=== PATIENT | female | born 1960 | race Caucasian/White ===

== ENCOUNTER → 2016-10-13 | Outpatient (CLI) | payer OTHER ==
[~2016-10-13] MED LIST: LANS30CA12 PO; PARO1TAB27 PO
--- NOTE | 2016-10-13 15:37 | MAMMOGRAPHY REPORT ---
BILATERAL DIGITAL DIAGNOSTIC MAMMOGRAM TOMOSYNTHESIS WITH CAD AND TARGETED BILATERAL ULTRASOUND: 09/18 CLINICAL HISTORY: 6 Month Follow-up Right. TECHNIQUE: Breast tomosynthesis in addition to standard 2D mammography was performed. Current study was also evaluated with a Computer Aided Detection (CAD) system. Bilateral CC and MLO 2-D and orin synthesis images were obtained. COMPARISON: Comparison is made to exams dated: 03/03/2016 ultrasound, 03/03/2016 mammogram, 08/20/2015 mammogram, 08/05/2015 mammogram, 07/21/2013 mammogram, and 07/23/2014 mammogram - [facility] [place]. BREAST COMPOSITION: There are scattered areas of fibroglandular density in both breasts. FINDINGS: The previously described ovoid 13 mm asymmetry seen within the right lateral breast on the cc view is stable dating back to the July 2015 exam. There is an oval circumscribed 8 mm mass in the left medial breast on the cc view which has been present dating back to at least the 2012 exa m but appears slightly more prominent. The remainder of both breasts are stable compared to prior e xams, without suspicious masses, calcifications, or areas of architectural distortion noted. Small bilateral round/oval circumscribed benign-appearing masses are again noted bilaterally, which are co nsidered benign given the multiplicity and bilaterality and likely represent cysts. Targeted ultrasound was performed of the area of the previously seen right breast finding. In the r ight breast at 9:00, 4 cm from the nipple, again noted is a parallel isoechoic ovoid region measurin g 13 x 3 x 11 mm which is stable dating back to the August 2015 exam. This likely correlates with the mammographic asymmetry. Findings are benign given the morphology and long-term stability. Targeted ultrasound was performed of the left medial breast in the region of the conspicuous mammogr aphic mass. In the left breast at 9:00, 3 cm from the nipple, there is an oval circumscribed anecho ic mass with a few thin echogenic internal septations, measuring 3 x 4 x 4 mm. This is felt to [place] elate with the mammographic mass and is consistent with a benign cyst. A few other anechoic benign simple cysts were also noted, including a 3 mm simple cyst in the left breast at 8:00, 3 cm from the nipple, as well as a 5 x 3 mm simple cyst in the left breast at 9:00, 4 cm from the nipple. IMPRESSION: ACR BI-RADS CATEGORY 2: BENIGN, TARGETED ULTRASOUND ACR BI-RADS CATEGORY 2: BENIGN The right lateral breast asymmetry is stable dating back to the July 2015 exam, and is considere d benign given the morphology and long-term stability. Small benign cysts seen within the left 8 to 9:00 breast on ultrasound. There is no mammographic or targeted sonographic evidence of malignancy . A 1 year screening mammogram is recommended. The patient has been verbally notified of the result s. Approximately 10% of breast cancers are not detected with mammography. A negative mammographic repor t should not delay biopsy if a clinically suggestive mass is present. Rosa Isela Hernandez M.D. ah/:10/13/2016 14:22:59 Roll Mechanic: Amina ZAFAR(Alda)(Chiqui), [facility] letter sent: Normal 1/2 BI-RADS Code: ACR BI-RADS Category 2: Benign Ultrasound BI-RADS: ACR BI-RADS Category 2: Benign
== END | disposition home or self-care (01) ==
LOC: C.MAMM 13:30
PROVIDERS: ATTEND Internal Medicine
DX: R92.8 Other abnormal and inconclusive findings on diagnostic imaging of breast (principal); N60.02 Solitary cyst of left breast; N64.89 Other specified disorders of breast

== ENCOUNTER → 2017-03-13 | Outpatient (CLI) | payer OTHER ==
[2017-03-13 17:29] LABS: BASO % 0.2 %; BASO ABS # 0.01 K/uL (0-0.2); COMPLETE YES; HEMATOCRIT 41.8 % (37-47); LYMPH % 41.3 %; MEAN CELL VOLUME 89.1 fL (80-100); MEAN CORPUSCULAR HEMOGLOBIN 30.7 pg (25-34); MEAN CORPUSCULAR HGB CONC 34.4 g/dl (32-36); MEAN PLATELET VOLUME 10.5 fL (7.4-10.4); MONO % 8.8 %; NEUT % 46.7 %; PLATELET COUNT 199 K/uL (130-400); RED BLOOD COUNT 4.69 M/uL (4.2-5.4); WHITE BLOOD COUNT 5.33 K/uL (4.8-10.8)
[2017-03-13 17:59] LABS: ALT/SGPT 74 U/L (12-78); BLOOD UREA NITROGEN 13 mg/dl (7-18); BUN/CREATININE RATIO 15.4 (10-20); CALCIUM 9.1 mg/dl (8.5-10.1); CARBON DIOXIDE 26 mmol/L (21-32); CHLORIDE 106 mmol/L (98-107); CHOLESTEROL 209 mg/dl (0-200); CREATININE 0.83 mg/dl (0.60-1.20); GLUCOSE 127 mg/dl (70-99); POTASSIUM 3.3 mmol/L (3.5-5.1); SODIUM 140 mmol/L (136-145); TRIGLYCERIDES 111 mg/dl (0-150); VERY LOW DENSITY LIPOPROT CALC 22 mg/dl
[2017-03-13 18:10] LABS: ALB/GLOB RATIO 1.2 (0.9-2); ALKALINE PHOSPHATASE 56 U/L (45-117); AST/SGOT 36 U/L (15-37); CHOLESTEROL/HDL RATIO 5.2; HDL CHOLESTEROL 40 mg/dl; LDL CHOLESTEROL CALCULATED 147 mg/dl; THYROID STIMULATING HORMONE 0.644 uIu/ml (0.300-4.500)
== END | disposition home or self-care (01) ==
LOC: C.LABPBG 15:19
PROVIDERS: ATTEND Physician Assistant Medical
DX: E78.5 Hyperlipidemia, unspecified (principal)

== ENCOUNTER → 2017-03-22 | Outpatient (CLI) | payer OTHER ==
[2017-03-22 16:56] LABS: BLOOD UREA NITROGEN 10 mg/dl (7-18); BUN/CREATININE RATIO 12.1 (10-20); CALCIUM 9.6 mg/dl (8.5-10.1); CARBON DIOXIDE 29 mmol/L (21-32); CHLORIDE 107 mmol/L (98-107); CREATININE 0.86 mg/dl (0.60-1.20); GLUCOSE 100 mg/dl (70-99); POTASSIUM 4.2 mmol/L (3.5-5.1); SODIUM 140 mmol/L (136-145)
[2017-03-23 06:05] LABS: ESTIMATED AVERAGE GLUCOSE 108 mg/dl; HA1C FLAG Normal (Normal)
== END | disposition home or self-care (01) ==
LOC: C.LABPBG 12:30
PROVIDERS: ATTEND Physician Assistant Medical
DX: R73.01 Impaired fasting glucose (principal); E87.6 Hypokalemia

== ENCOUNTER → 2018-04-30 | Outpatient (CLI) | payer OTHER ==
[2018-04-30 17:12] LABS: HEMATOCRIT 42.4 % (37-47); HEMOGLOBIN 14.5 g/dL (12.0-16.0); MEAN CELL VOLUME 89.5 fL (80-100); MEAN CORPUSCULAR HEMOGLOBIN 30.6 pg (25-34); MEAN CORPUSCULAR HGB CONC 34.2 g/dl (32-36); MEAN PLATELET VOLUME 10.5 fL (7.4-10.4); PLATELET COUNT 193 K/uL (130-400); RED CELL DISTRIBUTION WIDTH CV 12.9 % (11.5-14.5); RED CELL DISTRIBUTION WIDTH SD 42.2 fL (36.4-46.3); WHITE BLOOD COUNT 7.67 K/uL (4.8-10.8)
[2018-04-30 17:28] LABS: ALBUMIN 4.1 gm/dl (3.4-5.0); ALKALINE PHOSPHATASE 68 U/L (45-117); ALT/SGPT 66 U/L (12-78); AST/SGOT 34 U/L (15-37); BLOOD UREA NITROGEN 14 mg/dl (7-18); CALCIUM 9.5 mg/dl (8.5-10.1); CARBON DIOXIDE 27 mmol/L (21-32); CHOLESTEROL 161 mg/dl (0-200); CREATININE 0.95 mg/dl (0.60-1.20); GLUCOSE 123 mg/dl (70-99); LDL CHOLESTEROL CALCULATED 87 mg/dl; POTASSIUM 4.8 mmol/L (3.5-5.1); SODIUM 139 mmol/L (136-145); TOTAL PROTEIN 8.2 gm/dl (6.4-8.2)
== END | disposition home or self-care (01) ==
LOC: C.LABBFT 11:47
PROVIDERS: ATTEND Physician Assistant Medical
DX: E78.5 Hyperlipidemia, unspecified (principal); K92.1 Melena

== ENCOUNTER → 2018-05-01 | Outpatient (CLI) | payer OTHER ==
--- NOTE | 2018-05-01 13:51 | MAMMOGRAPHY REPORT ---
BILATERAL DIGITAL DIAGNOSTIC MAMMOGRAM TOMOSYNTHESIS WITH CAD AND TARGETED LEFT ULTRASOUND: 05/01/2018 CLINICAL HISTORY: 58-year-old woman presents with new onset left breast erythema, firmness and pain. Patient denies fevers or chills and nipple discharge. Also overdue for annual bilateral mammograms. TECHNIQUE: Bilateral CC and MLO 2D and tomosynthesis images were obtained. Current study was also ev aluated with a Computer Aided Detection (CAD) system. COMPARISON: Comparison is made to exams dated: 10/13/2016 mammogram, 03/03/2016 mammogram, 08/20/2015 m ammogram, 08/05/2015 mammogram, 10/13/2016 ultrasound, and 03/03/2016 ultrasound - [facility]. BREAST COMPOSITION: There are scattered areas of fibroglandular density in both breasts. FINDINGS: A triangular palpable marker was placed in the area of most intense pain in the 3:00 to 4:0 0 anterior left breast. There is subtle increased density of the entire left breast comparing to the right and also mild left breast skin thickening, most prominent from the 8:009:00 through periareol ar and 2:00 to 4:00 axes of the left breast. No obvious mass, asymmetry or new calcifications are id entified in the left breast. There is questionable architectural distortion in the lateral middle on e third of the left breast on CC tomosynthesis slice 29/73. Further evaluation with ultrasound was p erformed. There is a benign-appearing circumscribed mass in the upper outer anterior right breast, previously d ocumented to represent a cyst cluster on ultrasound. There is stable nodularity throughout the media l right breast. No new suspicious masses, asymmetries, calcifications or areas of architectural dist ortion are identified in the right breast. Targeted ultrasound was performed to the left breast. First on visual inspection, there is geographi c erythema extending from the 8:00 to 9:00 through periareolar and 2:00 through 5:00 axes. Targeted ultrasound performed over the areas of erythema demonstrate mild skin thickening measuring up to 2.9 mm. There is no evidence of a drainable fluid collection these findings are most compatible with mas titis/cellulitis. Incidental note is made of a small oval isoechoic partially circumscribed 4.9 x 3. 2 x 5.0 mm solid versus cystic mass in the 9:00 left breast, 2 cm from the nipple. In the 9:00 left breast, 1 cm from the nipple, there is a gently lobulated parallel isoechoic and anechoic solid versu s cystic mass measuring 10.2 x 4.0 x 6.1 mm. This could represent focal fibrocystic change, a cyst c luster or a fibroadenoma. IMPRESSION: ACR-BI-RADS CATEGORY 3: PROBABLY BENIGN, ULTRASOUND ACR-BI-RADS CATEGORY 3: PROBABLY ROSITA GN 1. Overall, the findings of the left breast are most compatible with mastitis/cellulitis without latanya dence of abscess. Continuation of antibiotic therapy is recommended and follow-up to complete resolu tion is recommended. If the breast erythema does not improve, skin biopsy is recommended. Additiona lly, given the possible subtle distortion in the lateral left breast and two indeterminate possibly s olid-appearing masses seen in the left 9:00 breast on targeted ultrasound, a short interval follow-up in approximately 6 weeks is recommended, and further management will be decided at that time presumi ng the infection/inflammation has resolved. 2. Stable mammographic appearance of the right breast, without evidence of malignancy. Recommend ri ght mammography in 1 year. Some breast cancers are not detected with mammography. A negative mammographic report should not justyn y biopsy if a clinically suggestive mass is present. Apoorva Lara M.D. ay/:05/01/2018 12:35:00 Office Machine Technician: Amina Trinh, [facility]; Apoorva Lara, [facility] letter sent: Follow Up Recommended 3 OVERALL STUDY BIRADS: 3 Probably benign
== END | disposition home or self-care (01) ==
LOC: C.MAMM 08:04
PROVIDERS: ATTEND Physician Assistant Medical
DX: N64.4 Mastodynia (principal); L53.9 Erythematous condition, unspecified

== ENCOUNTER 2023-09-03 18:26 | Observation (INO) ==
[2023-09-03] MEDS ORDERED: ONDANSETRON INJ 2 MG/ML 2 ML VIAL IV STA (18:47)
--- NOTE | 2023-09-03 18:47 | ED Triage Note ---
Date of Service September 03, 2023 Provider in Triage Author: Scarlet Payne History of Present Illness This patient was briefly evaluated while in triage. An abbreviated physical exam was performed. This patient is a 63-year-old Female who presents to the ED for evaluation of vomiting. Has not been able to eat or drink since last night at 7 pm. Feels really dizzy and dehydrated. Having cramping in her legs and a headache from dehydration and the vomiting. Squirts of diarrhea. No known fevers. Tried Zofran without improvement of her symptoms. Denies chest pain or SOB. Mild cramping of her abdomen before vomiting, but no true abdominal pain. Physical Exam GENERAL: The patient appears very nauseous and is vomiting in triage and appears uncomfortable from the nausea and vomiting. However, she appears non-toxic. HEENT: Pupils equal. No obvious scleral icterus. HEART: Regular rate and rhythm. LUNGS: Clear to auscultation. No accessory muscle use. ABDOMEN: Soft. Abdominal exam was somewhat difficult due to the patient's nausea and vomiting and inability to sit still in triage. NEURO: Alert and oriented. No obvious neurological deficits on quick neuro exam. Initial orders for labs and / or imaging were placed and patient was placed in the waiting area until a bed is available. Please see further documentation for the full ED course. MDM / Impression Impression Impression: COVID-19, Lactic acidemia
[2023-09-03] MEDS ORDERED: SODIUM CHLORIDE 0.9% 1,000 ML IV SCH ×2 (19:00→23:15)
[2023-09-03 19:43] LABS: Albumin Globulin Ratio 1.6 (0.9-2); Albumin Level 4.9 gm/dl (3.4-5.0); BUN Creatinine Ratio 14.6 (10-20); Bilirubin,Total 1.2 mg/dl (0.2-1.0); Calcium 9.7 mg/dl (8.6-10.3); Creatinine Clr Calc Pharmacy 69.6 ml/min; Est GFR (African American) 88.9 ml/min; Est GFR (Non-African American) 76.7 ml/min; Magnesium 1.6 mg/dl (1.7-2.4); Potassium 3.7 mmol/L (3.5-5.1); Total Protein 7.9 gm/dl (6.0-8.3)
[2023-09-03] MEDS ORDERED: diphenhydrAMINE 50 MG/ML VIAL IV STA (19:54)
[2023-09-03] MEDS ORDERED: SODIUM CHLORIDE 0.9% 1,000 ML IV ONE (19:54)
[2023-09-03] MEDS ORDERED: METOCLOPRAMIDE HCL INJ 5 MG/ML 2 ML VIAL IV ONE (19:54)
[2023-09-03 20:02] LABS: Hematocrit (blood only) 40.5 % (37.0-47.0); Hemoglobin 13.9 g/dl (12.0-16.0); Mean Corpuscular Hemoglobin 28.9 pg (25.0-34.0); Mean Corpuscular Hgb Conc 34.3 g/dL (32.0-36.0); Mean Corpuscular Volume 84.2 fL (80.0-100.0); Mean Platelet Volume 10.4 fL (9.4-12.4); Platelet Count 187 K/uL (130-400); RDW Coefficient of Variation 12.6 % (11.5-14.5); RDW Standard Deviation 37.7 fL (36.4-46.3); Red Blood Count 4.81 M/uL (4.20-5.40); White Blood Count 10.16 K/ul (4.8-10.8)
[2023-09-03 20:03] LABS: Basophils # (auto) 0.03 K/uL (0.00-0.20); Basophils % (auto) 0.3 %; Eosinophils # (auto) 0.04 K/uL (0.00-0.50); Eosinophils % (auto) 0.4 %; Immature Granulocytes # (auto) 0.05 K/uL (0.01-0.20); Immature Granulocytes % (auto) 0.5 %; Lymphocytes # (auto) 0.55 K/uL (1.20-3.40); Lymphocytes % (auto) 5.4 %; Monocytes # (auto) 0.68 K/uL (0.11-0.59); Monocytes % (auto) 6.7 %; Neutrophils # (auto) 8.81 K/uL (1.40-6.50); Neutrophils % (auto) 86.7 %
[2023-09-03] MEDS ORDERED: OPTIRAY 320 500ml IV ONE (21:05)
[2023-09-03 21:16] LABS: Appearance Urine Cloudy (Clear); Bacteria Urine Automated Negative (Negative); Bilirubin Urine Negative (Negative); Blood Urine Negative (Negative); Cast Urine Automated 0 /lpf (0-5); Color Urine Yellow; Epithelial Cell Urine Auto 20-30 /lpf (0-5); Glucose Urine UA Negative (Negative); Ketones Urine Negative (Negative); Leukocyte Esterase Urine Trace (Negative); Nitrite Urine Negative (Negative); Protein Urine Negative (Negative); RBC Urine Automated 0-4 /hpf (0-4); Specific Gravity Urine 1.018 (1.000-1.030); Urobilinogen Urine Negative (Negative)
--- NOTE | 2023-09-03 22:03 | Emergency Department Note ---
History of Present Illness General Chief complaint: Vomiting Stated complaint: VOMITING, CRAMPS, DIZZY Time Seen by Provider: 09/03/23 19:38 History of Present Illness Provider Complaint: + nausea and + vomiting Onset (ago): day(s) 1 Description of Vomiting: no bilious, no blood-streaked, no bloody or no coffee grounds Associated Abdominal Pain: Yes Location of pain: + diffuse Quality: + cramping Pain Consistency: + intermittent Relieved By: + none Exacerbated By: + none Context: no foreign travel, no sick contacts, no recent antibiotic use, no history of abdominal surgery, no alcohol abuse, no trauma, no anticoagulant use, no NSAID use, no smoking or no marijuana use Associated symptoms: + cough and + headaches; no chest pain, no fever/chills, no rash or no shortness of breath Home Medications Medication Instructions Recorded Confirmed Type paroxetine HCl 20 mg tablet 20 mg PO QAM #90 tabs 11/21/22 09/03/23 Rx atorvastatin 40 mg tablet 40 mg PO HS #90 tabs 11/26/22 09/03/23 Rx lansoprazole 30 mg capsule,delayed 30 mg PO BID PRN Heartburn 09/03/23 09/03/23 History release Allergies Allergy/AdvReac Type Severity Reaction Status Date / Time No Known Allergies Allergy Verified 08/15/23 15:19 Past Med/Surg History Medical History History of anesthesia reaction went into asthma attack during EGD 02/2019 Schatzki's ring Arthralgia of multiple sites Depression Hiatal hernia Esophageal dysphagia History of gastric ulcer GERD (gastroesophageal reflux disease) Anxiety Hyperlipidemia Asthma no longer uses inhalers for asthma - saw a specialist and unsure whether she actually has asthma Surgical History History of removal of cyst benign off breast History of bilateral tubal ligation History of colonoscopy (~07/19/11) repeat in 10 years History of esophagogastroduodenoscopy (EGD) History of wisdom tooth extraction Family History Father Family history of diabetes mellitus Myocardial infarction Brother Myocardial infarction Other No family history of adverse response to anesthesia Denies family history of Ovarian cancer Prostate cancer Breast cancer Colorectal cancer Social History Smoking Status: Never smoker Second Hand Exposure: Yes (parents smoked); Do You Dip or Chew Tobacco: No; Hx Alcohol Use: Yes Alcohol type: beer Hx Substance Use: No Preferred Language: Japanese Communication Ability: Effective Visual Impairment: No Limitations Hearing Ability: Normal [place] Required: No Beliefs That Will Affect Care: None marital status: Current Living Situation: Spouse Current Living Situation Comment: lives with and great nephew current occupational status: retired Feels Safe at Home: Yes Childhood Exposure to Second-Hand Smoke: No Diet: regular Dental Care, Regularly: No Physical Activity Frequency: Does not Exercise Seatbelt Use: sometimes Sunscreen Use: Yes Assistive Devices: Glasses Physical Exam 2 Vital Signs: Vital Signs - 24 hr 09/03/23 18:42 09/03/23 20:19 09/03/23 20:26 Temperature 36.4 C L Temperature Source Temporal Artery Sc an Pulse Rate 123 H 77 Pulse Rate [Right Finger] 104 H Respiratory Rate 18 18 18 Respiratory Effort / Characteristics Non-Labored Non-Labored Sponta neous Respiratory Depth Normal Normal Respiratory Patter n Regular Blood Pressure 176/86 H Blood Pressure [Ri ght Arm] 166/90 H Blood Pressure Samantha n 116 Blood Pressure Samantha n [Right Arm] 115 Blood Pressure Pos ition [Right Arm] Sitting Pulse Oximetry 97 98 98 Oxygen Delivery Me thod Room Air Room Air Room Air Sepsis Recent Feve r Within 48 Hours No Sepsis New/Unexpla ined Change in Men leticia Status N/A Sepsis Action Take n by Nursing No Action Required 09/03/23 22:00 09/03/23 23:51 Temperature Temperature Source Pulse Rate Pulse Rate [Right Finger] 87 96 H Respiratory Rate 18 18 Respiratory Effort / Characteristics Respiratory Depth Normal Respiratory Patter n Blood Pressure Blood Pressure [Ri ght Arm] 136/81 Blood Pressure Samantha n Blood Pressure Samantha n [Right Arm] 99 Blood Pressure Pos ition [Right Arm] Pulse Oximetry 95 90 Oxygen Delivery Me thod Room Air Room Air Sepsis Recent Feve r Within 48 Hours Sepsis New/Unexpla ined Change in Men leticia Status Sepsis Action Take n by Nursing Physical Exam: Physical Exam GENERAL: She is oriented to person, place, and time. She appears well-developed and well-nourished. She does not appear distressed. HENT: Exam performed. -Head: Normocephalic and atraumatic. -Right Ear: External ear normal. No mastoid erythema -Left Ear: External ear normal. No mastoid erythema -Mouth/Throat: The oropharynx is clear and moist. No trismus in the jaw. No dental abscesses or uvula swelling. No oropharyngeal exudate or tonsillar abscesses. EYES: Conjunctivae and EOM are normal. Pupils are equal, round, and reactive to light. Right eye exhibits no discharge. Left eye exhibits no discharge. No scleral icterus. NECK: Normal range of motion. Neck supple. No JVD present. No spinous process tenderness present. No carotid bruit present. No rigidity. No tracheal deviation and normal range of motion present. No Brudzinski's sign and no Kernig's sign noted. CV: Normal rate, regular rhythm, normal heart sounds and intact distal pulses. There is no peripheral edema. Palpable radial pulses bue. PULM/CHEST: Effort normal and breath sounds normal. No respiratory distress. No stridor. She has no wheezes. She has no rales. -Chest Wall: She exhibits no tenderness. ABD: The abdomen is soft. Bowel sounds are normal. She has no distension. No mass is present. There is no tenderness. There is no rebound, no guarding, no Griffiths's sign and no tenderness at McBurney's point. Rovsig negative MUSC/SKEL: Normal range of motion. There is no peripheral edema, tenderness or deformity. LYMPH: No cervical adenopathy. NEURO: She is alert and oriented to person, place, and time. She has normal strength. No cranial nerve deficit or sensory deficit. Coordination and gait normal. GCS eye subscore is 4. GCS verbal subscore is 5. GCS motor subscore is 6. Cerebellar tests wnl. SKIN: Skin is warm and dry. She is not diaphoretic. PSYCH: She has a normal mood and affect. Behavior is normal. Judgment and thought content normal. Course Course 1937: The patient was evaluated in room B7. A complete history and physical exam was performed Cardiac monitoring: An order was placed for continuous cardiac monitoring. The monitor shows a rate of 80 with sinus rhythm interpreted by ma [id number]: Vital signs stable. Labs showed normal white blood cell count. Lactic acid was initially 3. After 2 L of normal saline which the patient's lactic acid went up to 3.2. CT of the head and CT abdomen pelvis within normal limits. Patient is COVID-positive. Given the patient's increasing lactic acid IV fluids will be continued and [facility] team will be notified. Administered Medications Discontinued Medications Diphenhydramine HCl (Diphenhydramine 50 Mg/Ml Vial) 25 mg IV NOW STA Stop: 09/03/23 19:55 Last Admin: 09/03/23 20:14 Dose: 25 mg Documented By: KAMALJIT Sodium Chloride (Nss) 1,000 mls @ 999 mls/hr IV .Q1H1M LOUISA Stop: 09/03/23 20:00 Last Infusion: 09/03/23 20:28 Dose: Infused Documented By: Admin: 09/03/23 18:57 Dose: 999 mls/hr Documented By: SUMA Sodium Chloride (Nss) 1,000 mls @ 999 mls/hr IV .Q1H1M ONE Stop: 09/03/23 20:54 Last Infusion: 09/03/23 21:26 Dose: Infused Documented By: Admin: 09/03/23 20:13 Dose: 999 mls/hr Documented By: KAMALJIT Acetaminophen (Ofirmev) 1,000 mg in 100 mls @ 400 mls/hr IV NOW STA Stop: 09/03/23 22:39 Last Infusion: 09/03/23 22:48 Dose: Infused Documented By: Admin: 09/03/23 22:33 Dose: 400 mls/hr Documented By: SANDEEP Ioversol (Optiray 320 500ml) 88 ml IV ONCE ONE Stop: 09/03/23 21:06 Last Admin: 09/03/23 21:05 Dose: 88 ml Documented By: RONNI Metoclopramide HCl (Metoclopramide Hcl Inj 5 Mg/Ml 2 Ml Vial) 5 mg IV ONE ONE Stop: 09/03/23 19:55 Last Admin: 09/03/23 20:14 Dose: 5 mg Documented By: KAMALJIT Morphine Sulfate (Morphine Sulfate 2 Mg/Ml Carp) 2 mg IV NOW STA Stop: 09/03/23 22:26 Last Admin: 09/03/23 22:32 Dose: 2 mg Documented By: SANDEEP Ondansetron HCl (Ondansetron Inj 2 Mg/Ml 2 Ml Vial) 4 mg IV NOW STA Stop: 09/03/23 18:48 Last Admin: 09/03/23 19:02 Dose: 4 mg Documented By: SUMA Medical Decision Making Laboratory Data Attestation: I reviewed the patient's lab results. 09/03/23 19:01 09/03/23 19:01 Lab Results 09/03/23 09/03/23 09/03/23 Range/Units 19:01 19:03 20:22 WBC 10.16 (4.8-10.8) K/ul RBC 4.81 (4.20-5.40) M/uL Hgb 13.9 (12.0-16.0) g/dl Hct 40.5 (37.0-47.0) % MCV 84.2 (80.0-100.0) fL MCH 28.9 (25.0-34.0) pg MCHC 34.3 (32.0-36.0) g/dL RDW Std Deviation 37.7 (36.4-46.3) fL RDW Coeff of Carol 12.6 (11.5-14.5) % Plt Count 187 (130-400) K/uL MPV 10.4 (9.4-12.4) fL Immature Gran % (Auto) 0.5 % Neut % (Auto) 86.7 % Lymph % (Auto) 5.4 % [place] % (Auto) 6.7 % Eos % (Auto) 0.4 % Baso % (Auto) 0.3 % Neut # (Auto) 8.81 H (1.40-6.50) K/uL Lymph # (Auto) 0.55 L (1.20-3.40) K/uL [place] # (Auto) 0.68 H (0.11-0.59) K/uL Eos # (Auto) 0.04 (0.00-0.50) K/uL Baso # (Auto) 0.03 (0.00-0.20) K/uL Immature Gran # (Auto) 0.05 (0.01-0.20) K/uL Sodium 137 (136-145) mmol/L Potassium 3.7 (3.5-5.1) mmol/L Chloride 100 (98-107) mmol/L Carbon Dioxide 23 (21-32) mmol/L Anion Gap 14 H (3-11) BUN 12 (6-23) mg/dl Creatinine 0.82 (0.6-1.2) mg/dl Est Cr Clr Drug Dosing 69.6 ml/min Est GFR ( Amer) 88.9 ml/min Est GFR (Non-Af Amer) 76.7 ml/min BUN/Creatinine Ratio 14.6 (10-20) Glucose 127 H (70-99(Fasting)) mg/dl Lactate 3.0 H* (0.4-2.0) mmol/L Calcium 9.7 (8.6-10.3) mg/dl Magnesium 1.6 L (1.7-2.4) mg/dl Total Bilirubin 1.2 H (0.2-1.0) mg/dl AST 45 H (13-39) U/L ALT 46 (7-52) U/L Alkaline Phosphatase 65 (34-104) U/L Total Protein 7.9 (6.0-8.3) gm/dl Albumin 4.9 (3.4-5.0) gm/dl Globulin 3.0 (2.5-4.0) gm/dl Albumin/Globulin Ratio 1.6 (0.9-2) Lipase 17 (11-82) U/L Urine Color Yellow Urine Appearance Cloudy A (Clear) Urine pH 8.0 H (4.5-7.5) Ur Specific [place] 1.018 (1.000-1.030) Urine Protein Negative (Negative) Urine Glucose (UA) Negative (Negative) Urine Ketones Negative (Negative) Urine Blood Negative (Negative) Urine Nitrite Negative (Negative) Urine Bilirubin Negative (Negative) Urine Urobilinogen Negative (Negative) Ur Leukocyte Esterase Trace H (Negative) Urine WBC (Auto) 1-5 (0-5) /hpf Urine RBC (Auto) 0-4 (0-4) /hpf U Hyaline Cast (Auto) 0 (0-5) /lpf U Epithel Cells (Auto) 20-30 H (0-5) /lpf Urine Bacteria (Auto) Negative (Negative) SARS-CoV-2 (PCR) POSITIVE A* (Negative) Influenza Type A (PCR) Negative (Neg) Influenza Type B (PCR) Negative (Neg) RSV (RT-PCR) Negative (Neg) 09/03/23 09/03/23 Range/Units 20:55 21:52 WBC (4.8-10.8) K/ul RBC (4.20-5.40) M/uL Hgb (12.0-16.0) g/dl Hct (37.0-47.0) % MCV (80.0-100.0) fL MCH (25.0-34.0) pg MCHC (32.0-36.0) g/dL RDW Std Deviation (36.4-46.3) fL RDW Coeff of Carol (11.5-14.5) % Plt Count (130-400) K/uL MPV (9.4-12.4) fL Immature Gran % (Auto) % Neut % (Auto) % Lymph % (Auto) % [place] % (Auto) % Eos % (Auto) % Baso % (Auto) % Neut # (Auto) (1.40-6.50) K/uL Lymph # (Auto) (1.20-3.40) K/uL [place] # (Auto) (0.11-0.59) K/uL Eos # (Auto) (0.00-0.50) K/uL Baso # (Auto) (0.00-0.20) K/uL Immature Gran # (Auto) (0.01-0.20) K/uL Sodium (136-145) mmol/L Potassium (3.5-5.1) mmol/L Chloride (98-107) mmol/L Carbon Dioxide (21-32) mmol/L Anion Gap (3-11) BUN (6-23) mg/dl Creatinine (0.6-1.2) mg/dl Est Cr Clr Drug Dosing ml/min Est GFR ( Amer) ml/min Est GFR (Non-Af Amer) ml/min BUN/Creatinine Ratio (10-20) Glucose (70-99(Fasting)) mg/dl Lactate 3.1 H* 3.2 H* (0.4-2.0) mmol/L Calcium (8.6-10.3) mg/dl Magnesium (1.7-2.4) mg/dl Total Bilirubin (0.2-1.0) mg/dl AST (13-39) U/L ALT (7-52) U/L Alkaline Phosphatase (34-104) U/L Total Protein (6.0-8.3) gm/dl Albumin (3.4-5.0) gm/dl Globulin (2.5-4.0) gm/dl Albumin/Globulin Ratio (0.9-2) Lipase (11-82) U/L Urine Color Urine Appearance (Clear) Urine pH (4.5-7.5) Ur Specific [place] (1.000-1.030) Urine Protein (Negative) Urine Glucose (UA) (Negative) Urine Ketones (Negative) Urine Blood (Negative) Urine Nitrite (Negative) Urine Bilirubin (Negative) Urine Urobilinogen (Negative) Ur Leukocyte Esterase (Negative) Urine WBC (Auto) (0-5) /hpf Urine RBC (Auto) (0-4) /hpf U Hyaline Cast (Auto) (0-5) /lpf U Epithel Cells (Auto) (0-5) /lpf Urine Bacteria (Auto) (Negative) SARS-CoV-2 (PCR) (Negative) Influenza Type A (PCR) (Neg) Influenza Type B (PCR) (Neg) RSV (RT-PCR) (Neg) Imaging Data Attestation: I personally reviewed and interpreted this imaging study as follows: My Impression: Chest x-ray: Bilateral groundglass opacities at the bases. Radiologist's Impression: Abdomen/Pelvis CT 09/03/23 19:54 Exam(s): CT ABDOMEN + PELVIS With Contrast IV Amt: 88 ml opti 320 EXAM: CT Abdomen and Pelvis With Intravenous Contrast CLINICAL HISTORY: Reason for exam: abd pain nv. TECHNIQUE: Axial computed tomography images of the abdomen and pelvis with intravenous contrast. CTDI is 28 mGy and DLP is 1412.16 mGy-cm. Automated exposure control was utilized for the study. A dose lowering technique was utilized adhering to the principles of ALARA. CONTRAST: Patient received 88 ml opti 320 of IV contrast COMPARISON: None. FINDINGS: Lung bases: Trace right lower lobe subpleural atelectasis, otherwise clear lung bases . Heart: Unremarkable. No cardiomegaly. No significant pericardial effusion. Normal cardiac size. Mediastinum: Possible minimal hiatal hernia, otherwise unremarkable stomach . ABDOMEN: Liver: Possible minimal diffuse fatty liver, otherwise normal liver. Gallbladder and bile ducts: Unremarkable. No calcified stones. No ductal dilation. Pancreas: Unremarkable. No mass. No ductal dilation. Spleen: Unremarkable. No splenomegaly. Adrenals: Unremarkable. No mass. Kidneys and ureters: Unremarkable. No solid mass. No hydronephrosis. Stomach and bowel: The transverse and descending colon are decompressed with borderline thickening of the wall, cannot exclude mild colitis or sequela of prior enteritis. No obstruction. PELVIS: Appendix: Normal appendix . Bladder: Unremarkable. No mass. Reproductive: Unremarkable as visualized. ABDOMEN and PELVIS: Intraperitoneal space: Unremarkable. No free air. No significant fluid collection. Bones/joints: Mild spondylosis degenerative disease of the spine with no acute fracture, spondylolisthesis or pars defect. Mild degenerative disease of bilateral SI joints and hips. No dislocation. Soft tissues: Unremarkable. Vasculature: Mild atherosclerotic disease of aorta with no aneurysm. Lymph nodes: Unremarkable. No enlarged lymph nodes. IMPRESSION: 1. Decompression of the colon with mild transverse and descending colitis versus sequela of prior enteritis not excluded. Clinical correlation recommended. 2. Possible minimal diffuse fatty liver otherwise unremarkable abdominal viscera. 3. No acute appendicitis or bowel obstruction. Electronically signed by: Keara Varela MD 09/03/23 22:[address] 09/03/23 19:54 Exam(s): CT HEAD Without Contrast EXAM: CT Head Without Intravenous Contrast CLINICAL HISTORY: Reason for exam: nv. TECHNIQUE: Axial computed tomography images of the head/brain without intravenous contrast. CTDI is 36.31 mGy and DLP is 624.41 mGy-cm. Automated exposure control was utilized for the study. A dose lowering technique was utilized adhering to the principles of ALARA. COMPARISON: None. FINDINGS: Brain: Mild generalized brain atrophy. No hemorrhage. No significant white matter disease. Ventricles: Unremarkable. No ventriculomegaly. Bones/joints: Unremarkable. No acute fracture. Soft tissues: Unremarkable. Sinuses: Mucosal thickening involving the bilateral ethmoids and right maxillary sinus most compatible with sequela of chronic or prior sinusitis. Remainder of the paranasal sinuses are clear. Mastoid air cells: Unremarkable as visualized. Normal bilateral mastoids. IMPRESSION: Involutional changes otherwise normal CT brain for age. Electronically signed by: Keara Varela MD 09/03/23 23:01 PM [facility] Narrative 1938: The patient was evaluated in room B7. A complete history and physical exam was performed Cardiac monitoring: An order was placed for continuous cardiac monitoring. The monitor shows a rate of 80 with sinus rhythm interpreted by ma [id number]: Vital signs stable. Labs showed normal white blood cell count. Lactic acid was initially 3. After 2 L of normal saline which the patient's lactic acid went up to 3.2. CT of the head and CT abdomen pelvis within normal limits. Patient is COVID-positive. Given the patient's increasing lactic acid IV fluids will be continued and [facility] team will be notified. Impression & Plan COVID-19, Lactic acidemia Discharge Plan Visit Data Chief Complaint: Vomiting Stated Complaint: VOMITING, CRAMPS, DIZZY ED Provider: Jack Machado Discharge Problem: COVID-19, Lactic acidemia Patient Disposition: Admitted As Inpatient Forms Stand Alone Forms: My [facility] Prescriptions Prescriptions: No Action paroxetine HCl 20 mg tablet 20 mg PO QAM Qty: 90 3RF atorvastatin 40 mg tablet 40 mg PO HS Qty: 90 3RF lansoprazole 30 mg capsule,delayed release(DR/EC) 30 mg PO BID PRN (Reason: Heartburn) Referrals Referrals: Joy David MD [Primary Care Provider] -
[2023-09-03 22:21] LABS: Influenza A virus by PCR Negative (Neg); Influenza B virus by PCR Negative (Neg); RSV by PCR Negative (Neg)
[2023-09-03] MEDS ORDERED: ACETAMINOPHEN 1,000 MG/100 ML VIAL IV STA (22:25)
[2023-09-03] MEDS ORDERED: MoRPHine SULFATE 2 MG/ML CARP IV STA (22:25)
[2023-09-03 22:32] LABS: SARS CoV2 RNA(COVID-19) Ceph POSITIVE (Negative)
--- NOTE | 2023-09-03 23:00 | CT Scan Report ---
Exam(s): CT ABDOMEN + PELVIS With Contrast IV Amt: 88 ml opti 320 EXAM: CT Abdomen and Pelvis With Intravenous Contrast CLINICAL HISTORY: Reason for exam: abd pain nv. TECHNIQUE: Axial computed tomography images of the abdomen and pelvis with intravenous contrast. CTDI is 28 mGy and DLP is 1412.16 mGy-cm. Automated exposure control was utilized for the study. A dose lowering technique was utilized adhering to the principles of ALARA. CONTRAST: Patient received 88 ml opti 320 of IV contrast COMPARISON: None. FINDINGS: Lung bases: Trace right lower lobe subpleural atelectasis, otherwise clear lung bases . Heart: Unremarkable. No cardiomegaly. No significant pericardial effusion. Normal cardiac size. Mediastinum: Possible minimal hiatal hernia, otherwise unremarkable stomach . ABDOMEN: Liver: Possible minimal diffuse fatty liver, otherwise normal liver. Gallbladder and bile ducts: Unremarkable. No calcified stones. No ductal dilation. Pancreas: Unremarkable. No mass. No ductal dilation. Spleen: Unremarkable. No splenomegaly. Adrenals: Unremarkable. No mass. Kidneys and ureters: Unremarkable. No solid mass. No hydronephrosis. Stomach and bowel: The transverse and descending colon are decompressed with borderline thickening of the wall, cannot exclude mild colitis or sequela of prior enteritis. No obstruction. PELVIS: Appendix: Normal appendix . Bladder: Unremarkable. No mass. Reproductive: Unremarkable as visualized. ABDOMEN and PELVIS: Intraperitoneal space: Unremarkable. No free air. No significant fluid collection. Bones/joints: Mild spondylosis degenerative disease of the spine with no acute fracture, spondylolisthesis or pars defect. Mild degenerative disease of bilateral SI joints and hips. No dislocation. Soft tissues: Unremarkable. Vasculature: Mild atherosclerotic disease of aorta with no aneurysm. Lymph nodes: Unremarkable. No enlarged lymph nodes. IMPRESSION: 1. Decompression of the colon with mild transverse and descending colitis versus sequela of prior enteritis not excluded. Clinical correlation recommended. 2. Possible minimal diffuse fatty liver otherwise unremarkable abdominal viscera. 3. No acute appendicitis or bowel obstruction. Electronically signed by: Keara Varela MD 09/03/23 22:59 PM
--- NOTE | 2023-09-03 23:03 | CT Scan Report ---
Exam(s): CT HEAD Without Contrast EXAM: CT Head Without Intravenous Contrast CLINICAL HISTORY: Reason for exam: nv. TECHNIQUE: Axial computed tomography images of the head/brain without intravenous contrast. CTDI is 36.31 mGy and DLP is 624.41 mGy-cm. Automated exposure control was utilized for the study. A dose lowering technique was utilized adhering to the principles of ALARA. COMPARISON: None. FINDINGS: Brain: Mild generalized brain atrophy. No hemorrhage. No significant white matter disease. Ventricles: Unremarkable. No ventriculomegaly. Bones/joints: Unremarkable. No acute fracture. Soft tissues: Unremarkable. Sinuses: Mucosal thickening involving the bilateral ethmoids and right maxillary sinus most compatible with sequela of chronic or prior sinusitis. Remainder of the paranasal sinuses are clear. Mastoid air cells: Unremarkable as visualized. Normal bilateral mastoids. IMPRESSION: Involutional changes otherwise normal CT brain for age. Electronically signed by: Keara Varela MD 09/03/23 23:01 PM
[2023-09-04] MEDS ORDERED: LANSOPRAZOLE 30 MG SOLTAB PO PRN (01:18)
[2023-09-04] MEDS ORDERED: METOCLOPRAMIDE HCL INJ 5 MG/ML 2 ML VIAL IV PRN (01:18)
--- NOTE | 2023-09-04 02:13 | History & Physical Report ---
Date of Service September 04, 2023 Assessment & Plan (1) Nausea & vomiting: Plan: Patient is a 63-year-old female with a past medical history of hypertriglyceridemia, anxiety, GERD, hyperlipidemia, and esophageal dysphagia who presents to the hospital for evaluation for nausea and vomiting. Patient being admitted under observation for the concern of elevated lactate. Patient is otherwise hemodynamically stable. -Admit to [facility], no telemetry indication -Status post fluid resuscitation and antiemetics, patient clinically improved -Suspect due to food poisoning in the setting of fast food consumption or strictly COVID-19 gastroenteritis -Placed on clear liquids for now and advance as tolerated -LR at 100 cc/h -Recheck electrolytes in a.m. -As long as patient is able to tolerate p.o. intake, patient may be discharged on 09/04 under self-care (2) Lactic acidemia: Plan: - Elevated lactate likely in the setting of nausea and vomiting with poor p.o. intake -No need to recheck, fluid resuscitation as above, advance diet as tolerated (3) COVID-19: Plan: - Likely playing some part in nausea and vomiting -Patient has good oxygen saturation on room air, no indication for dexamethasone or remdesivir -Patient would be a good Paxlovid candidate upon discharge given symptoms started as late as 2 days ago (4) Anxiety: Plan: - Continue PPI (5) Hyperlipidemia: Plan: - Continue statin, atorvastatin will need to be held outpatient if started on Paxlovid (6) Esophageal dysphagia: Plan: - Clear liquids for now but may require softer diet with patient discretion (7) GERD (gastroesophageal reflux disease): Plan: - Continue PPI Plan Disposition: Admit to [facility] for fluid resuscitation and antiemetics DVT prophylaxis: Low risk, however, if patient were to stay longer than a day would recommend Lovenox given patient is COVID-positive Diet: Clears and advance as tolerated CODE STATUS: Full code as discussed with patient Admission and Anticipated Discharge Date Admission Date: September 04, 2023 History of Present Illness Chief Complaint: Nausea and Vomiting Primary Care Provider: Joy David MD Patient is a 63-year-old female with a past medical history of hypertriglyceridemia, anxiety, GERD, hyperlipidemia, and esophageal dysphagia who presents to the hospital for evaluation for nausea and vomiting. It seems over the past 24 hours, patient has had persistent nausea and vomiting and once her stomach had been emptied turned to dry heaving. She reports it has been nonstop since early afternoon on 09/02/2023. She has not been able to tolerate any p.o. intake including food and water. She is also missed some medications because of this as well. Denies any hematemesis. Interestingly she did have about 5 or 6 episodes of loose stools on 09/01/2023. She has not had a bowel movement since that happened. Denies hematochezia or melena. She does report some congestion and headache as well which is also started since 09/02. Otherwise, she did eat a fish sandwich from a fast food restaurant for lunch on 09/02 and the symptoms started approximately 4 to 5 hours after this. Nobody else at home is having symptoms. She does have a history of esophageal dysphagia issues and is some question regarding eosinophilic esophagitis but this is currently being worked up. She does occasionally have episodes of dysphagia with vomiting over the past 15 years, however, she reports that this is different and has never had a flareup like this before. No fevers at home. No shortness of breath or chest pain. No other complaints at this time. ED course: Patient evaluated by provider. Labs are significant for a normal white blood cell count, normal electrolytes, lactate of 3.0 increased to 3.2 after fluids, magnesium of 1.6, bilirubin of 1.2, AST of 45, overall normal urinalysis, patient is positive for COVID. Head CT was within normal limits. CT of the abdomen pelvis showing decompression of colon with mild transverse and descending colitis. Otherwise unremarkable CT. Patient was given fluids, antiemetics, and morphine. Patient felt much better after receiving these treatment modalities. Due to concern of elevated lactate, hospitalist service was consulted for admission. Allergies Allergy/AdvReac Type Severity Reaction Status Date / Time No Known Allergies Allergy Verified 08/15/23 15:19 Home Medications Medication Instructions Recorded Confirmed Type paroxetine HCl 20 mg tablet 20 mg PO QAM #90 tabs 11/21/22 09/03/23 Rx atorvastatin 40 mg tablet 40 mg PO HS #90 tabs 11/26/22 09/03/23 Rx lansoprazole 30 mg capsule,delayed 30 mg PO BID PRN Heartburn 09/03/23 09/03/23 History release acetaminophen 325 mg tablet 650 mg (2 x 325 mg) PO Q4H PRN 09/04/23 Rx Fever Or Pain 30 days #30 tabs nirmatrelvir 300 mg (150 mg See Rx Instructions PO .COMPLEX 09/04/23 Rx x2)-ritonavir 100 mg tablet,dose #30 ea pack (Paxlovid) Past Med/Surg History Medical History (Updated 09/04/23 @ 13:52 by Jemma Whitmore PA-C) Fatty liver History of anesthesia reaction went into asthma attack during EGD 02/2019 Schatzki's ring Arthralgia of multiple sites Depression Hiatal hernia Esophageal dysphagia History of gastric ulcer GERD (gastroesophageal reflux disease) Anxiety Hyperlipidemia Asthma no longer uses inhalers for asthma - saw a specialist and unsure whether she actually has asthma Surgical History History of removal of cyst benign off breast History of bilateral tubal ligation History of colonoscopy (~07/19/11) repeat in 10 years History of esophagogastroduodenoscopy (EGD) History of wisdom tooth extraction Family History Father Family history of diabetes mellitus Myocardial infarction Brother Myocardial infarction Other No family history of adverse response to anesthesia Denies family history of Ovarian cancer Prostate cancer Breast cancer Colorectal cancer Social History Smoking Status: Never smoker Second Hand Exposure: Yes (parents smoked); Do You Dip or Chew Tobacco: No; Hx Alcohol Use: Yes Alcohol type: beer Hx Substance Use: No Preferred Language: Cypriot Communication Ability: Effective Visual Impairment: No Limitations Hearing Ability: Normal Process Assistant Required: No Beliefs That Will Affect Care: [employer] marital status: Current Living Situation: Spouse Current Living Situation Comment: lives with and great nephew current occupational status: retired Other Information That Helps Us Care for You: No Feels Safe at Home: Yes Safety Concerns: Feels Safe At This Time Childhood Exposure to Second-Hand Smoke: No Diet: regular Dental Care, Regularly: No Physical Activity Frequency: Does not Exercise Seatbelt Use: sometimes Sunscreen Use: Yes Assistive Devices: None Review of Systems Review of Systems: All systems reviewed & are unremarkable except as noted in HPI & below Physical Exam Constitutional: well developed, well nourished, + obese and comfortable Eyes: + anicteric sclerae Neck: trachea midline, no thyromegaly Respiratory: normal respiratory effort, lungs clear to auscultation Cardiovascular: RRR, no murmur, no edema Gastrointestinal (Abdomen): Inspection/Auscultation: abdomen normal to inspection Percussion/Palpation: abdomen soft; abdomen nontender Musculoskeletal: Head/Neck/Chest: normocephalic and head atraumatic Skin: no rashes, warm and dry Neurologic: moves all extremities Psychiatric: A+Ox3, euthymic affect Results & Data Results & Data Vital Signs (Past 12 Hours) Vital Signs Temp Pulse Pulse Resp BP BP Pulse Ox 09/04/23 01:24 90 14 137/98 93 09/04/23 01:22 90 14 137/98 93 09/03/23 23:51 96 H 18 136/81 90 09/03/23 22:00 87 18 95 09/03/23 20:26 77 18 98 09/03/23 20:19 104 H 18 166/90 H 98 09/03/23 18:42 36.4 C L 123 H 18 176/86 H 97 O2 Del Method 09/04/23 01:24 Room Air 09/04/23 01:22 Room Air 09/03/23 23:51 Room Air 09/03/23 22:00 Room Air 09/03/23 20:26 Room Air 09/03/23 20:19 Room Air 09/03/23 18:42 Room Air Supervising Physician Co-Signing Physician Notes Attending addendum: I have physically seen this patient, have supervised the medical residents activities, and agree with the H&P unless as otherwise noted. Assessment and Plan: Intractable nausea and vomiting/gastroenteritis- Differential including food poisoning associated with fast food intake about 5 hours prior to symptoms, versus potential addition of COVID-19 gastroenteritis Clear liquids, advance diet as tolerated LR at [address] abdomen and pelvis shows mild transverse and descending Colitis Ongoing symptoms of esophageal dysphagia and GERD, with potential issue of chronic motility issues, likely contributing factor as well Lactic acidemia- 93.2 on admission with follow-up pending Should improve with conservative care as above COVID-19 infection- May be contributing to GI symptoms somewhat No issues with pulmonary Not a candidate for dexamethasone or remdesivir due to symptomatology
[2023-09-04] MEDS: LACTATED RINGER'S 1,000 ML IV SCH ×2 (04:04→13:18)
[2023-09-04] MEDS: ACETAMINOPHEN 325 MG TAB PO PRN ×2 (04:04→09:25)
--- NOTE | 2023-09-04 07:19 | XRay Report ---
XR chest 1V portable CLINICAL HISTORY: covid COMPARISON STUDY: Chest radiograph January 18, 2011. FINDINGS: Lung volumes are normal. Lungs are clear. There is no pneumothorax or pleural effusion. Car diac size is normal. Mediastinal contours are normal. There is no evidence for pulmonary edema. IMPRESSION: No acute cardiopulmonary findings. ACT 112: Negative or not required by law. Electronically signed by: Black Wallace M.D. 09/04/2023 7:18 AM
[2023-09-04] MEDS ORDERED: PARoxetine HCL 20 MG TAB PO SCH (09:00)
[2023-09-04 09:11] LABS: Hematocrit (blood only) 36.5 % (37.0-47.0); Hemoglobin 12.4 g/dl (12.0-16.0); Mean Corpuscular Hemoglobin 29.4 pg (25.0-34.0); Mean Corpuscular Volume 86.5 fL (80.0-100.0); Mean Platelet Volume 9.8 fL (9.4-12.4); Platelet Count 142 K/uL (130-400); RDW Coefficient of Variation 13.1 % (11.5-14.5); Red Blood Count 4.22 M/uL (4.20-5.40); White Blood Count 7.51 K/ul (4.8-10.8)
[2023-09-04 09:19] LABS: Albumin Level 4.1 gm/dl (3.4-5.0); BUN Creatinine Ratio 14.5 (10-20); Bilirubin Direct 0.1 mg/dl (0-0.2); Bilirubin,Total 0.9 mg/dl (0.2-1.0); Calcium 8.5 mg/dl (8.6-10.3); Est GFR (African American) 97.4 ml/min; Est GFR (Non-African American) 84.1 ml/min; Magnesium 1.7 mg/dl (1.7-2.4); Phosphorus 3.1 mg/dl (2.5-4.9); Potassium 3.2 mmol/L (3.5-5.1); Total Protein 6.6 gm/dl (6.0-8.3)
[2023-09-04] MEDS ORDERED: POTASSIUM CHLORIDE CRTAB 20 MEQ TABCR PO STA (09:52)
--- NOTE | 2023-09-04 13:52 | Discharge Summary ---
Discharge Summary Date of Service September 04, 2023 Notes For Next Care Provider Follow up on fatty liver seen on CTA/P Medication Changes From Visit Yu x5 days Admission HPI Per Admitting Provider Patient is a 63-year-old female with a past medical history of hypertriglyceridemia, anxiety, GERD, hyperlipidemia, and esophageal dysphagia who presents to the hospital for evaluation for nausea and vomiting. It seems over the past 24 hours, patient has had persistent nausea and vomiting and once her stomach had been emptied turned to dry heaving. She reports it has been nonstop since early afternoon on 09/02/2023. She has not been able to tolerate any p.o. intake including food and water. She is also missed some medications because of this as well. Denies any hematemesis. Interestingly she did have about 5 or 6 episodes of loose stools on 09/01/2023. She has not had a bowel movement since that happened. Denies hematochezia or melena. She does report some congestion and headache as well which is also started since 09/02. Otherwise, she did eat a fish sandwich from a fast food restaurant for lunch on 09/02 and the symptoms started approximately 4 to 5 hours after this. Nobody else at home is having symptoms. She does have a history of esophageal dysphagia issues and is some question regarding eosinophilic esophagitis but this is currently being worked up. She does occasionally have episodes of dysphagia with vomiting over the past 15 years, however, she reports that this is different and has never had a flareup like this before. No fevers at home. No shortness of breath or chest pain. No other complaints at this time. ED course: Patient evaluated by provider. Labs are significant for a normal white blood cell count, normal electrolytes, lactate of 3.0 increased to 3.2 after fluids, magnesium of 1.6, bilirubin of 1.2, AST of 45, overall normal urinalysis, patient is positive for COVID. Head CT was within normal limits. CT of the abdomen pelvis showing decompression of colon with mild transverse and descending colitis. Otherwise unremarkable CT. Patient was given fluids, antiemetics, and morphine. Patient felt much better after receiving these treatment modalities. Due to concern of elevated lactate, hospitalist service was consulted for admission. Principal Dx & Hospital Course #1 = Principal Diagnosis (1) Nausea & vomiting: - Food poisoning versus COVID-19 gastroenteritis? - improved after rehydration. Tolerated full diet for lunch. Maintain bland diet at home for the next few days (2) COVID-19: - Stable on room air - Likely contributing to nausea/vomiting and headache - agreeable with Paxlovid on discharge, understands common GI side effects and when to discontinue if needed - Follow CDC guidelines for isolation (3) Fatty liver: noted on CT scan - discussed diet and exercise - recommend outpatient follow-up with PCP (4) Lactic acidemia: resolved with fluid resuscitation (5) Hypertriglyceridemia: hold atorvastatin until finishes Paxilovid (6) GERD (gastroesophageal reflux disease): continue Lansoprazole (7) Anxiety: Continue Paroxetine Plan Discharge to home Discharge Exam General: WN/WD, NAD, VS as above HEENT: PEERL, Fluid behind right TM, no signs of otitis media Resp: normal respiratory effort, lungs clear to auscultation, dry cough present CV: RRR, no murmur, Abd: normal bowel sounds, non tender, no hepatosplenomegaly Extremities: Moves all extremities, no edema Neuro: A&O x3, Skin: intact, no lesions noted Updated Medication List Medication Instructions Recorded Confirmed Type paroxetine HCl 20 mg tablet 20 mg PO QAM #90 tabs 11/21/22 09/03/23 Rx atorvastatin 40 mg tablet 40 mg PO HS #90 tabs 11/26/22 09/03/23 Rx lansoprazole 30 mg capsule,delayed 30 mg PO BID PRN Heartburn 09/03/23 09/03/23 History release acetaminophen 325 mg tablet 650 mg (2 x 325 mg) PO Q4H PRN 09/04/23 Rx Fever Or Pain 30 days #30 tabs nirmatrelvir 300 mg (150 mg See Rx Instructions PO .COMPLEX 09/04/23 Rx x2)-ritonavir 100 mg tablet,dose #30 ea pack (Paxlovid) Hospital Stay Data Consultations 09/03/23 23:09 ED Decision to Admit Stat Diagnostic Imagining Performed 09/03/23 19:54 CT abd pelvis IV con only Stat CT head/brain wo con Stat Discharge Instructions Given to Patient (Per Discharging Provider) Ms. Beauchamp, you were hospitalized after having severe nausea and vomiting. It was also found that you were COVID-positive. During your stay, you were treated with IV fluids to treat the dehydration. . We performed a CT of your head that was normal. Chest x-ray was also normal, no signs of COVID-pneumonia. CT scan of abdomen pelvis did show fatty liver. You are also having a significant headache, that improved with Tylenol. This is likely related to COVID-19. You can continue with Tylenol at home, using cool compress, a humidifier in the room and taking allergy medicine or nasal spray can also help with the symptoms. Remain on the bland diet until your symptoms improve. You are also prescribed Paxilovid, which can cause GI upset and diarrhea. If you experiences those symptoms you can just stop the Paxil avoid as we discussed. You will take this twice a day for 5 days. You should follow-up with your PCP regarding the fatty liver seen on CT scan. Recommend low-carb diet and exercise to also help improve this. You have a mild case of COVID, and I expect you to do well. However if you do develop any shortness of breath, difficulty breathing, chest pain or worsening nausea or vomiting please call your PCP or return to the ER. You should follow CDC guidelines in regards to isolation. It was our pleasure taking care of you Jemma Whitmore PA-C Total Time Total Time Spent Total Time Spent (In Minutes): 45 Supervising Physician Co-Signing Physician Notes PA Supervision Note: I personally saw and examined the patient. I verified all rivero points and agree with TERRY Whitmore with the following exceptions and/or additions: S-patient feeling much improved after IV fluids. No more nausea and is tolerating p.o. Her headache is improved with Tylenol and IV fluid hydration. Denies abdominal pain or diarrhea. O- Vitals reviewed Gen: AAOx3, NAD HEENT: Anicteric sclerae, EOMI CV: RRR no mgr nl S1S2 Pulm: CTAB no wcr Abd: +BS soft NT ND no masses or hernias Ext: No edema, 2+ DP pulses Skin: No rashes, warm/dry Neuro: Full strength throughout CBC, CMP, lactate reviewed A/P-86-iat[age]-old female here with intractable nausea/vomiting and headache with dehydration and lactic acidosis secondary to COVID-19 gastroenteritis Now much improved with IV fluids and antiemetics Stable for discharge to home Coding Level of Care Code 29110 INP/OBS DISCH >30 MIN Diagnoses Nausea & vomiting R11.2 COVID-19 U07.1 Fatty liver K76.0 Lactic acidemia E87.20 Hypertriglyceridemia E78.1 GERD (gastroesophageal reflux disease) K21.9 Anxiety F41.9
[2023-09-04] MEDS ORDERED: ATORVASTATIN 40 MG TAB PO SCH (21:00)
--- NOTE | 2023-09-04 21:05 | Billing Data ---
Date of Service September 04, 2023 Coding Level of Care Code 22568 INT INP/OBS CARE
== END 2023-09-04 14:00 | disposition home or self-care (01) ==
LOC: EDINP 18:26 → ED 18:26 → SUATTDRO 09-04 00:46 → EDINP 09-04 01:19